=== PATIENT | male | born 1985 | race Caucasian/White ===

== ENCOUNTER → 2021-05-30 14:09 | Outpatient (BNVA) | payer SELFPAY | PROVIDERS: Visit Provider Physician Assistant Medical | DX: Z02.79 Encounter for issue of other medical certificate (principal) ==

== ENCOUNTER → 2022-02-19 15:45 | Outpatient (BNVA) | payer OTHER, SELFPAY | PROVIDERS: PCP Obstetrics & Gynecology; Visit Provider Surgery | DX: K40.90 Unilateral inguinal hernia, without obstruction or gangrene, not specified as recurrent (principal) | CPT/HCPCS: 99202 ==

== ENCOUNTER 2022-04-04 08:53 | Day surgery (SDC) | payer OTHER, SELFPAY ==
--- NOTE | 2022-04-03 09:18 | HO.ANESPROP2 ---
Documented by User: Venice Rees NP 04/03/22 09:18 HPI - Anesthesia Eval Consult details Narrative: 36yo M for Hernia Repair Inguinal with mesh [facility] Active Problems Active Problems: All Active Problems (Updated 02/19/22 @ 16:11 by Rey Leyva MD) Left inguinal hernia (Acute) Past Medical History Medical History Left inguinal hernia Surgical History Surgical History (Updated 04/04/22 @ 09:23 by Rona Coelho RN) Hx of arthroscopy of left knee Social History Social History Patient Tobacco Use Status: Current everyday Tobacco user Tobacco use type: Cigarette Smoked in Last 30 Days: Yes Patient Interested in Nicotine Replacement: No Substance Use Frequency: Daily Are you DNR?: No Advance Directives: No Advance Directives Information Provided: Yes Recently lost weight without trying: No Nutrition Risks: No Nutritional Risk Meds Allergies Allergy/AdvReac Type Severity Reaction Status Date / Time No Known Allergies Allergy Verified 04/04/22 09:22 Home Medications Medication Instructions Recorded Confirmed Last Taken Type carboxymethylcellulose sodium 0.5 1 drp ophthalmic (eye) QID 02/19/22 Unknown History % eye drops Exam Exam Date and Time: April 03, [id number] Assessment and Plan Assessment Anesthesia Assessment: Chart Reviewed Documented by User: Manolo Chang MD 04/04/22 11:53 [facility] Past Medical History Medical History Left inguinal hernia Family History Family history of problems with anesthesia: No Surgical History Surgical History (Updated 04/04/22 @ 09:23 by Rona Coelho RN) Hx of arthroscopy of left knee History of Problems with Anesthesia: No Social History Social History Patient Tobacco Use Status: Current everyday Tobacco user Tobacco use type: Cigarette Smoked in Last 30 Days: Yes Patient Interested in Nicotine Replacement: No Substance Use Frequency: Daily Are you DNR?: No Advance Directives: No Advance Directives Information Provided: Yes Recently lost weight without trying: No Nutrition Risks: No Nutritional Risk Meds Allergies Allergy/AdvReac Type Severity Reaction Status Date / Time No Known Allergies Allergy Verified 04/04/22 09:22 Home Medications Medication Instructions Recorded Confirmed Last Taken Type carboxymethylcellulose sodium 0.5 1 drp ophthalmic (eye) QID 02/19/22 Unknown History % eye drops Exam Airway Mallampati Class: I TM Dist: >3cm Neck ROM: Full Loose/Missing/Broken Teeth: No Heart: ok Lungs: ok Assessment and Plan Final Anesthetic Review Family History of Problems with Anesthesia: No History of Problems with Anesthesia: No NPO: Yes ASA Class: II Final Preanesthetic Review: No Changes in Pt Med Stat, Meds/Allgs Chart Reviewed, Consent Obtained/Reviewed and Anes Risks/Benef Reviewed Patient Risk: Low Procedure Risk: Low Anesthetic Plan Anesthetic Plan: GA and Agree w/ Assess. and Plan Disposition: Standard PACU
[2022-04-04] VITALS (9 sets, daily range): BP systolic 125–163; BP diastolic 64–98; PULSE 56–82; RESP 14–18; TEMP 36.7–36.8; O2SAT 95–99; BMI 23.1
[2022-04-04] MEDS: Lactated Ringers 1,000 ML 100 ML IVCONT (09:30)
--- NOTE | 2022-04-04 11:22 | MHC.SHP ---
Pre-Procedural Eval Section A Date of Service: 04/04/22 Section B Chief Complaint: hernia Details of Present Illness: reducible left inguinal hernia symptoms Relevant Family History (Specify if Yes): No Relevant Social History: None Medical History: No relevant PMH History of Previous Operations: No relevant previous surgery Allergies: Allergies Allergy/AdvReac Type Severity Reaction Status Date / Time No Known Allergies Allergy Verified 04/04/22 09:22 Review of Systems Sugical H&P ROS: Negative: Constitution, Cardiovascular, Respiratory, Neurological, Psychiatric, Hem-Onc, Allergic/Immunologic, Gastrointestinal, Genitourinary, Musculoskeletal, Integumentary, Endocrine and Eyes/Ears/Nose/Throat Exam Surgical H&P Exam: Normal: HEENT, Normal: Heart, Normal: Lungs, Normal: Extremities, Normal: Skin and Normal: Neurological and Significant Findings: Abdomen ( left inguinal hernia reducible) Plan Diagnosis/Plan: Unchanged I have reviewed the history and physical and performed a pertinent physical examination on my patient. No changes have occurred unless specified.
--- NOTE | 2022-04-04 12:45 | W.PM.OPN ---
Operative Note Operative Note Date of Service: 04/04/22 Narrative: Preop diagnosis: Inguinal hernia Postop diagnosis: Left inguinal hernia, indirect Procedure: Repair of a left hernia with mesh Surgeon: Rey Leyva MD Table Cut Off Saw Operator: KEYONA Seay student The patient is a 36-year-old male with a reducible mass on the left groin consistent as the left inguinal hernia. He understood the technique of repair with mesh. He was aware of the risks, benefits, and alternatives . Was brought to the operating room placed supine on the table under general anesthesia via laryngeal mask airway. The left groin was prepped and draped in the usual sterile fashion. A surgical time-out was done. The patient received cefazolin 2 g IV preoperatively I made a short incision on the skin along an imaginary line from the anterior superior iliac spine to the pubic ramus using blade 15 after infiltration with lidocaine 1%. I carried down this incision through the full-thickness of the skin subcutaneous fat with electrocautery until I visualized the external oblique aponeurosis. I bluntly dissected the external oblique aponeurosis with a gauze to expose the external ring. I made an incision on the neurosis using a blade 15. Extended this inferomedially to connect with the external ring. The inguinal canal was therefore entered. I applied hemostats on the edges of the divided aponeurosis. I bluntly dissected the underside of the aponeurosis to create a pocket for the mesh. I then proceeded to bluntly dissect the spermatic cord and its contents with an index finger until I was able to pass a Marshall drain around this. This Marshall drain was used for retraction. I examined the cord contents. The hernia sac was seen on the tibial aspect. The vas deferens was identified in this protected during the dissection. I proceeded to gently dissect the hernia sac off of the rest of the cord contents with blunt dissection until it was mobilized at the level of the internal ring. I twisted the hernia sac and applied a clamp across the base. This sac was divided. I by the stump of the divided sac with a Dexon 2-0 tie. I reinforced the internal ring with a Prolene plug. The plug was secured with Prolene to suture to shelving edge of the inguinal and laterally and the internal oblique superiorly medially using the inner leaves of the mesh. I then reinforced the floor of the canal with a keyhole mesh. The tails of the mesh were passed around the cord at the level of the internal ring and were secured together with Prolene 2 sutures. I secured the mesh with the internal oblique superiorly and medially, and the shelving edge of the inguinal meant laterally, as well as the pubic ramus inferomedially I observed for hemostasis. Hemostasis was confirmed. I dated. I closed the subcutaneous layer with Dexon 3-0 interrupted sutures. Skin closure was achieved with Dexon 4-0 subcuticular running stitch. I infiltrated the area of the incision with Marcaine 0.5% for postop analgesia . Dressings were applied. The procedure was completed . The patient tolerated procedure well. There were no complication noted. Initial and final counts of sponges instruments were correct. Estimated blood loss about the 10 cc . The patient was extubated without difficulty and transferred to the recovery room with stable vital signs.
[2022-04-04] MEDS: fentaNYL citrate/PF 100 MCG/2 ML VIAL 50 MCG IVPUSH ×3 (13:04→13:14)
[2022-04-04] MEDS: Acetaminophen 325 MG TABLET 650 MG PO (13:05)
[2022-04-04] MEDS: oxyCODONE HCl Immed Release 5 MG TABLET 10 MG PO (13:05)
== END 2022-04-04 14:40 | disposition home or self-care (01) ==
PROVIDERS: PCP Internal Medicine; Visit Provider Surgery
PROC: (CPT 49505; principal; 2022-04-04 11:20)
DX: K40.90 Unilateral inguinal hernia, without obstruction or gangrene, not specified as recurrent (principal); F17.210 Nicotine dependence, cigarettes, uncomplicated
CPT/HCPCS: 49505; 88302; C1781; J0690; J1100; J1885; J2250; J2405; J3010

== ENCOUNTER 2022-06-18 11:23 | Emergency (ER) | payer OTHER, SELFPAY ==
[2022-06-18 12:26] VITALS: BP 118/70; PULSE 59; RESP 16; TEMP 36.2; O2SAT 99; BMI 24.3
== END 2022-06-18 16:49 | disposition left against medical advice (07) ==
PROVIDERS: Emergency Provider Emergency Medicine; PCP Internal Medicine
DX: R10.33 Periumbilical pain (principal)
CPT/HCPCS: 99281

== ENCOUNTER 2023-08-26 08:32 | Emergency (ER) | payer OTHER, SELFPAY ==
[2023-08-26 08:50] VITALS: BP 149/83; PULSE 88; RESP 18; TEMP 36.8; O2SAT 98; BMI 25.1
--- NOTE | 2023-08-26 11:21 | PC.NURSE ---
Patient with 2 areas of redness on left side of body- one on left side of abdomen and left lower abdomen, Reports pain only on left side of body and lower back. Reports tingling feeling in left arm, abdomen. denies fever chills, chest pain or headache
[2023-08-26 11:38] VITALS: BP 125/81; PULSE 63; RESP 16; TEMP 36.9; O2SAT 97
--- NOTE | 2023-08-26 13:32 | PC.NURSE ---
Patient came to nurses station and stated he was sick of waiting to be seen by provider and he was leaving. Patient exited to waiting room.
== END 2023-08-26 13:41 | disposition left against medical advice (07) ==
PROVIDERS: Emergency Provider Emergency Medicine; PCP Internal Medicine
DX: R21 Rash and other nonspecific skin eruption (principal); R10.9 Unspecified abdominal pain
CPT/HCPCS: 99282; 99284